=== PATIENT | male | born 1980 | race Two or more races ===

== ENCOUNTER 2018-05-17 00:50 | Emergency (ER) | payer SELFPAY ==
[2018-05-17] VITALS (7 sets, daily range): BP systolic 0–88; BP diastolic 0–35
[~2018-05-17] VITALS: Ht 152.4 cm; Wt 54.4 kg
[2018-05-17] MEDS ORDERED: Pantoprazole Inj IVP ONE (01:00)
[2018-05-17] MEDS ORDERED: Levophed 4mg/4mL Inj IV ONE ×2 (01:02→01:37)
[2018-05-17] MEDS ORDERED: Sodium Bicarbonate 50ml Carp ONE (01:02)
[2018-05-17 01:21] LABS: APPEARANCE,URINE CLEAR; BILIRUBIN, URINE 1+ (NEGATIVE); GLUCOSE, URINE (UA) NEGATIVE (NEGATIVE); KETONES,URINE NEGATIVE (NEGATIVE); NITRITE,URINE NEGATIVE (NEGATIVE); PH,URINE 6.5 (4.5-8.0); PROTEIN,URINE 3+ (NEGATIVE); UROBILINOGEN,URINE 8 MG/DL (0.0-1.0)
--- NOTE | 2018-05-17 01:23 | Emergency Room Report ---
History of Present Illness General Chief Complaint: Gastrointestinal Bleed Source: Patient, EMS Present Illness HPI This is a 38-year-old male with a history of alcohol and drug abuse. He presents with chief complaint abdominal pain with vomiting blood. His last drink was yesterday. He's been vomiting blood for the last 3 hours. At least 5 episodes. No rectal bleeding. Per EMS, he was hypotensive with systolic in the 80s. Patient complaining abdominal pain. Pain is 7 out of 10. Worse with palpation. He has weakness. Worse with exertion. Never had this problem before. Allergies: Coded Allergies: No Known Allergies (Unverified , 05/17/18) Patient History Past Medical History: none, see triage record, old chart reviewed Past Surgical History: none Pertinent Family History: none Social History: Reports: alcohol use, drug use Immunizations: other Reviewed Nursing Documentation: PMH: Agreed; PSxH: Agreed Nursing Documentation-PMH Past Medical History: Deferred Review of Systems Eye: Denies: eye pain, blurred vision ENT: Denies: ear pain, nose congestion, throat swelling Respiratory: Denies: cough, shortness of breath Cardiovascular: Denies: chest pain, palpitations Gastrointestinal: Reports: abdominal pain, vomiting, hematemesis; Denies: diarrhea, nausea Musculoskeletal: Denies: back pain, joint pain Skin: Denies: rash Neurological: Denies: headache, numbness Endocrine: Denies: increased thirst, increased urine Hematologic/Lymphatic: Denies: easy bruising All Other Systems: negative except mentioned in HPI Physical Exam Vital Signs Date Time Temp Pulse Resp B/P (MAP) Pulse Ox O2 Delivery O2 Flow Rate FiO2 05/17/18 00:56 93.9 74 30 61/35 84 Non-Rebreather 15.0 vitals with hypotension and hypoxia Sp02 EP Interpretation: abnormal General Appearance: severe distress, lethargic Head: normocephalic, atraumatic Eyes: bilateral eye PERRL, bilateral eye EOMI ENT: hearing grossly normal, normal pharynx, other - Bright red blood in mouth Neck: full range of motion, supple, no meningismus Respiratory: chest non-tender, lungs clear, normal breath sounds Cardiovascular #1: regular rate, rhythm, no murmur Gastrointestinal: normal bowel sounds, no mass, no organomegaly, no bruit, non- distended, tenderness - Diffuse Musculoskeletal: back normal, normal range of motion Neurologic: grossly normal Psychiatric: mood/affect normal Skin: warm/dry Procedures Critical Care Time Critical Care Time Critical care is mandated in this patient who presented with acute GI bleed with hypotension. Patient require my urgent intervention to attenuate the risks of metabolic collapse which may lead to cardiovascular collapse and . Critical care time is 75 minutes excluding any reportable procedure. Critical care time included evaluation, multiple reevaluation, looking at old charts, interpreting laboratory and diagnostic data, discussing case with patient and family and consultants, and charting. Central Line Central Line : Consent: Emergent Central Line Lumen: triple Maximal Sterile Barrier Tech: yes cap, yes mask, yes sterile gown, yes sterile gloves, yes large sterile sheet, yes hand hygiene, yes chlorhexidine prep Central Line Postion: femoral (R) Complications: none Central Line Post Position: sutured, good blood return Attempts: One Patient Tolerated: Well Complications: None CPR/Code Blue CPR/Code Blue Narrative Please see code sheet for full information. Patient became bradycardic and then loss of pulse. CPR initiated. Total of 2 epinephrine given. Spontaneous return of pulse. Intubation Intubation : Consent: Emergent Intubation Method: orotracheal Tube Size (cm): 7.5 Breath Sounds after Intubation: equal Intubation Complications: no complications Post Intubation Xray: Yes Progress/Xray Impression: Endotracheal tube in good position Attempts: One Patient Tolerated: Well Complications: None Progress There was blood coming out of the endotracheal tube. I suspect that patient also aspirated. Additional Procedure Procedure Narrative Procedure: Oral gastric tube placement Indication: GI bleed Description: I placed an 18-gauge orogastric tube. There was copious amount of dark blood suctioned. Over a liter so far. Medical Decision Making Diagnostic Impression: Primary Impression: Gastrointestinal hemorrhage Qualified Codes: K92.2 - Gastrointestinal hemorrhage, unspecified Additional Impressions: Alcohol withdrawal seizure Qualified Codes: F10.230 - Alcohol dependence with withdrawal, uncomplicated Cardiac arrest Alcohol abuse ACS (acute coronary syndrome) Pancreatitis, alcoholic, acute Qualified Codes: K85.20 - Alcohol induced acute pancreatitis without necrosis or infection End-stage liver disease Methamphetamine abuse Aspiration of blood Respiratory failure, acute Qualified Codes: J96.01 - Acute respiratory failure with hypoxia Metabolic acidosis ER Course Patient presents with acute GI bleed probably secondary to alcohol abuse with variceal. Patient blood pressure was low initially. He was given IV fluid and blood was ordered. Shortly on arrival, patient became bradycardic. I called the code. ER was initiated. Patient was intubated. 2 rounds of epinephrine given. I place a central line and Levophed was started. O negative blood was ordered. While was placed in a central line, patient had a tonic-clonic seizure lasting for 1 to 2 minutes. Ativan was given. I discussed case with Dr. Childs and JONH Trevizo. Lab Results Impression Labs with severe abnormality EKG Diagnostic Results Rate: normal Rhythm: NSR ST Segments: other - ST depression anterior laterally ASA given to the pt in ED: No - GI bleed Rhythm Strip Diag. Results Rhythm Strip Time: 01:22 EP Interpretation: yes Rate: 74 Rhythm: NSR, no PVC's, no ectopy Chest X-Ray Diagnostic Results Chest X-Ray Diagnostic Results #1: Chest X-Ray Ordered: Yes # of Views/Limited/Complete: 1 View Indication: Shortness of Breath EP Interpretation: Yes Interpretation: no effusion, no pneumothorax, other - Right Middle lobe infiltrate Impression: Other - rml infiltrate Electronically Signed by: Bull Young MD Chest X-Ray Diagnostic Results #2: Chest X-Ray Ordered: Yes # of Views/Limited/Complete: 1 View Indication: Other - post intubation EP Interpretation: Yes Interpretation: no effusion, no pneumothorax, other - RUL infiltrate, ETT, NGT Impression: Other - s/p intubation, NGT Electronically Signed by: Bull Young MD Last Vital Signs Date Time Temp Pulse Resp B/P (MAP) Pulse Ox O2 Delivery O2 Flow Rate FiO2 05/17/18 00:56 93.9 74 30 61/35 84 Non-Rebreather 15.0 Status: worsened Disposition: ADMITTED INPATIENT Condition: Critical Scripts Unable to Obtain Active Prescriptions or Reported Meds Referrals: NOT CHOSEN IPA/,REFERRING (PCP) Bull Young MD May 17, 2018 01:23
[2018-05-17 01:27] LABS: HEMATOCRIT 28.4 % (42.0-52.0); HEMOGLOBIN 9.4 G/DL (14.2-18.0); MEAN CORPUSCULAR VOLUME 102 FL (80-99); PLATELET COUNT 34 K/UL (150-450); RED BLOOD COUNT 2.78 M/UL (4.70-6.10); RED CELL DISTRIBUTION WIDTH 13.7 % (11.6-14.8); WHITE BLOOD COUNT 15.9 K/UL (4.8-10.8)
[2018-05-17 01:39] LABS: ANION GAP 29 mmol/L (5-15); BLOOD UREA NITROGEN 9 mg/dL (7-18); CALCIUM 7.9 MG/DL (8.5-10.1); CARBON DIOXIDE 11 MMOL/L (21-32); CHLORIDE 102 MMOL/L (98-107); CREATININE 1.8 MG/DL (0.55-1.30); POTASSIUM 3.3 MMOL/L (3.5-5.1); SODIUM 142 MMOL/L (136-145)
[2018-05-17] MEDS ORDERED: LORazepam Inj 2mg/ml 1ml ONE (01:40)
[2018-05-17 01:49] LABS: ALANINE AMINOTRANSFERASE 183 U/L (12-78); ALBUMIN 2.9 G/DL (3.4-5.0); ALBUMIN/GLOBULIN RATIO 0.6 (1.0-2.7); ALKALINE PHOSPHATASE 121 U/L (46-116); ASPARTATE AMINO TRANSFERASE 828 U/L (15-37); BILIRUBIN,TOTAL 1.6 MG/DL (0.2-1.0)
[2018-05-17 01:51] LABS: INR 4.8 (0.9-1.1)
[2018-05-17] MEDS ORDERED: Pantoprazole Inj ONE (01:57)
[2018-05-17 01:59] LABS: COLOR,URINE AMBER
[2018-05-17 02:00] LABS: LEUKOCYTE ESTERASE ,URINE 2+ (NEGATIVE)
[2018-05-17] MEDS ORDERED: LORazepam Inj 2mg/ml 1ml IV ONE (02:00)
[2018-05-17] MEDS ORDERED: Pantoprazole 80 MG in NS 250 ML IV ONE (02:00)
[2018-05-17 02:01] LABS: BILIRUBIN,DIRECT 0.8 MG/DL (0.0-0.3)
[2018-05-17] MEDS ORDERED: Phenylephrine 10mg/ml 5ml vial IV ONE (02:11)
[2018-05-17] MEDS ORDERED: Phenylephrine 50 MG in D5W 245 ML IV SCH (02:15)
[2018-05-17] MEDS ORDERED: Sodium Bicarbonate 50ml Carp IV ONE (03:30)
--- NOTE | 2018-05-17 09:41 | Diagnostic Imaging Report ---
Indication: Post intubation Technique: One view of the chest Comparison: One half hour earlier Findings: There is an endotracheal tube in place, tip projected in good position approximately 3 cm above the nu. There is a nasogastric tube in place, tip in good position projected at the fundal body junction of the stomach. There is bilateral perihilar atelectasis and generalized mild interstitial congestion. Air bronchograms in the bilateral perihilar region suggests a component of consolidation as well. Parenchymal findings are similar to the previous study. The heart size is upper limits normal. No effusions. Impression: Satisfactory nasogastric and endotracheal intubation Bilateral perihilar parenchymal disease, unchanged over one half hour
--- NOTE | 2018-05-17 10:39 | Diagnostic Imaging Report ---
Indication: Vomiting blood for 3 hours, cardiac arrest, tachycardia, hypoxemia Technique: One view of the chest Comparison: none Findings: Inspiration is suboptimal. The heart is enlarged. There is prominence to the hilar vessels. No definite infiltrates, effusions, or congestion Impression: Cardiomegaly No definite acute process
--- NOTE | 2018-05-17 19:38 | Cardiology Report ---
APPROVED REPORT EKG Measurement Heart [id number] [place] [id number] [id number] Normal sinus rhythm Marked ST abnormality, possible lateral subendocardial injury Prolonged QT Abnormal ECG
== END 2018-05-17 03:58 | disposition expired ==
LOC: EDBD 00:50 → EMR 01:01 → UNDOADMIN 01:55 → ICU 01:55 → EDBEDREQ 02:53 → EMR 03:58
DX: K92.2 Gastrointestinal hemorrhage, unspecified (principal); I95.9 Hypotension, unspecified; R00.1 Bradycardia, unspecified; F10.239 Alcohol dependence with withdrawal, unspecified; R56.9 Unspecified convulsions; I46.9 Cardiac arrest, cause unspecified; I24.9 Acute ischemic heart disease, unspecified; T17.918A Gastric contents in respiratory tract, part unspecified causing other injury, initial encounter; K72.90 Hepatic failure, unspecified without coma; F15.10 Other stimulant abuse, uncomplicated; J96.90 Respiratory failure, unspecified, unspecified whether with hypoxia or hypercapnia; E87.2 Acidosis
CPT/HCPCS: 31500; 36415; 36600; 71045; 80053; 80307; 81001; 82248; 82803; 83690; 84484; 85025; 85610; 85730; 86850; 86900; 86901; 86920; 86927; 87040; 87086; 93005; 94002; 94664; 96361; 96365; 96366; 96367; 96368; 96375; 99291; C9113; G0480; J0171; J2370; J2405; J3430; J3490; P9016; 80329